=== PATIENT | male | born 1995 | race Two or more races ===

== ENCOUNTER 2020-06-17 06:13 | Emergency (ER) | payer MEDICAID, OTHER ==
[~2020-06-17] VITALS: Ht 157.5 cm; Wt 54.4 kg
--- NOTE | 2020-06-17 07:00 | NUR ---
BIBRA 60 FOR HEARING VOICES AND WILLING TO HURT HIMSELF. 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
[2020-06-17 07:08] LABS: BASOPHILS # (AUTO) 0.1 /CMM (0.0-0.2); BASOPHILS % (AUTO) 0.7 % (0.0-2.0); EOSINOPHILS % (AUTO) 0.2 % (0.0-6.0); HEMATOCRIT 43 % (39-51); HEMOGLOBIN 14.8 g/dL (13.5-17.5); LYMPHOCYTES # (AUTO) 2.4 /CMM (0.8-4.8); LYMPHOCYTES % (AUTO) 22.9 % (20.0-44.0); MEAN CORPUSCULAR HGB CONC 35 g/dl (31.0-36.0); MEAN CORPUSCULAR VOLUME 87 fL (80-96); MONOCYTES % (AUTO) 9.9 % (2.0-12.0); NEUTROPHILS # (AUTO) 6.8 /CMM (1.8-8.9); NEUTROPHILS % (AUTO) 66.3 % (43.0-81.0); PLATELET COUNT (AUTO) 341 /CMM (150-450); RED BLOOD CELL COUNT(AUTO) 4.92 MIL/uL (4.5-6.0); WHITE BLOOD COUNT (AUTO) 10.3 K/uL (4.3-11.0)
--- NOTE | 2020-06-17 07:20 | NUR ---
COVID SWAB DONE
[2020-06-17 07:37] LABS: CALCIUM, SERUM 8.9 mg/dL (8.5-10.1); CARBON DIOXIDE 23 mmol/L (21-32); CHLORIDE 99 mmol/L (98-107); CREATININE 0.7 mg/dL (0.6-1.3); GLUCOSE 96 mg/dL (74-106); POTASSIUM 3.3 mmol/L (3.5-5.1); SODIUM SERUM 136 mmol/L (136-145); UREA NITROGEN, BLOOD 17 mg/dL (7-18)
[2020-06-17 07:41] LABS: ALANINE AMINOTRANSFERASE 61 U/L (12-78); ALBUMIN 4.2 g/dL (3.4-5.0); ALCOHOL, BLOOD < 3 mg/dL (0-0); ALKALINE PHOSPHATASE 106 U/L (46-116); ASPARTATE AMINOTRANSFERASE 51 U/L (15-37); BILIRUBIN,DIRECT 0.3 mg/dL (0.0-0.2); BILIRUBIN,TOTAL 1.4 mg/dL (0.2-1.0); TOTAL PROTEIN, SERUM 7.5 g/dL (6.4-8.2)
[2020-06-17 07:45] LABS: ACETAMINOPHEN 0 ug/ml (10-30)
[2020-06-17 09:07] LABS: BILIRUBIN,URINE SMALL (NEGATIVE); LEUKOCYTE ESTERASE ,URINE NEGATIVE (NEGATIVE); NITRITE, URINE NEGATIVE (NEGATIVE); PROTEIN,URINE NEGATIVE (NEGATIVE); UGLUCOSE NEGATIVE (NEGATIVE)
[2020-06-17 09:20] LABS: COLOR,URINE DARK YELLOW (YELLOW)
[2020-06-17 10:04] LABS: BACTERIA,URINE None seen /HPF (None Seen); RBC,URINE NONE SEEN /HPF (0-2); SQUAMOUS EPITHELIAL CELL,UR None Seen /HPF (None Seen); WBC,URINE 0-2 /HPF (0-3)
--- NOTE | 2020-06-17 10:20 | NUR ---
SS Note: SS consult requested for SI+ and drug use. The pt. is a 24 year old male who was BIBRA for AH+ and possible SI+. Per EMR, the pt. tested positive for Amphetamine, Opiates, Cannabinoids. Upons SS consult, the pt. is lying in bed asleep. Pt is not rousable via verbal cues. Pt. appears disheveled, with flushed skin. SW will follow up at a later time. SW placed addiction resources in pt.'s discharge packet.
--- NOTE | 2020-06-17 11:30 | NUR ---
PATIENT RESTING IN BED, NO DISTRESS NOTED.
--- NOTE | 2020-06-17 16:11 | NUR ---
PATIENT SEEN AND EVALUATED BY [place] ELECTION CLERK, PATIENT WILL BE REFERRED AT [facility].
--- NOTE | 2020-06-17 16:14 | NUR ---
"SS Consult: JACQUELIN followed up with pt. bedside. The pt. is still very drowsy and barely rousable to verbal cues. The pt. appears disheveled. The pt. is alert & oriented X 2. Pt. stated he is still having suicidal ideations and could not state a plan. SW offered pt. voluntary placement in psychiatric hospital for treatment and pt. is agreeable. SW explored pt.s living conditions. Pt. stated that he has been experiencing homelessness since the age of 15. Pt. stated he live son the streets. SW provided pt. with homeless resources and pt. accepted them. Pt. is drowsy and was non-compliant with the rest of the interview. Plan: JACQUELIN faxed clinicals to to [facility] [[address] [place] [address] Fxa: [phone]] for inpatient psychiatric treatment. Pt. refused to sign homeless waiver. SW provided pt. with homeless resources and pt. accepted them. JACQUELIN provided pt. with the following resources: Substance Abuse resources provided included: [facility] Substance Abuse Self-Helpline ([facility]) ; CRI -HELP [address]39 [facility]. [place] [address] ; [facility] 35252 [facility] [address] ; [facility] 26989 [facility] [address] ; [facility] [address] [facility] [address] ; [facility] 5565 [facility] [address] ; [facility] [address] [facility] [address] ; [facility] Substance Abuse Helpline([facility] ; [facility] ; [facility] [place]; [facility] [place]; Cri[facility]Help [place]; I-ADARP Inter Agency Drug Abuse Recovery Melvin Spaulding; [facility] [place]; [facility] [place]; [facility] Tar[facility]; [facility], [facility]. [facility]; Alcoholics Anonymous -SFV; Lo-Dfuo-Yrldhjw ; Marijuana Anonymous -SFV; Narcotics Anonymous www.na.org; Year-round shelters: [facility] [place] [address] [place], [place] [phone] ; [facility] [place] [address] [place] [address]; [place] [facility] Fmxyfak6879 [facility] [address] Winter Shelters: [facility] Provider: Torres of [facility] Address: [address] [facility] Center[facility]andy [place], [address] # of Beds: 47 Population Served: [facility] 6 | [facility] Provider: Home at Last Address: [address], [address] # of Beds: 66 Population Served: [facility] Nanwalek Harrells Provider: First to Serve Address: [address]28 [facility], [address] # of Beds: 56 Population Served: [facility] Juan M ArevaloMandy [place] Provider: SSG/Ms. [facility] House Address: [address] [facility], [address] # of Beds: 49 Population Served: [facility] 8 | [facility] Provider: First to Serve Address: 3535 [facility], [address] # of Beds: 37 Population Served: [facility] Hygiene: [facility] Hospital[facility]: [address] Chris Torresge ; [place] [facility] [address] [facility] ; [facility] [address] Emeli Universal Laney . Food Resources: [place] [facility] at [facility]- [address]. [place]; Meet Each Need with Dignity ([facility]) [address] [facility]; [facility] Food Pantry 4317 [facility]; [facility] 0477 [facility]. Mental Health resources provided: [facility] [address] [place], [place] [phone] ; [facility] Mental Health [employer] [address] [facility] [address] 2, [place], [place] [phone] ; [facility] [address]2522 [facility] [place] [address] ; [facility] [place], [place] [phone] Healthcare Clinics: [facility] 6551 [facility], [address] [place]. [place] ; [facility] [address] [facility] [address] [place] [address]; [facility] Health [place] [address] [facility] [address] 946) [phone] Counseling--Outpatient [facility] [address] [facility], [place] [address] (Specializes in in-depth psychotherapy for emotional distress: anxiety, depression, interpersonal conflicts, life transitions, childhood abuse) [facility] [address] [place] [address] (Assist with solving problem marital difficulties, separation & divorce, aging parents, & grief, chronic & terminal illness) [facility] [address] [place] [address] (Deal with loss & grief, anxiety, marital difficulties) Homebound/Mental Health Services 60374 [facility] 100 [place] [address] (Provide in-home mental services to people who are incapable of leaving their homes) Organization for Needs of the Elderly Senior Service/Resource Center [address] [place] [place] [address] [facility] 6514 [address]ainz. Universal [place], [place] [phone] PSYCHIATRIC OUTPATIENT SERVICES [facility] Partial Hospitalization and Intensive Outpatient Program (Managed Care and [place] Only)[address]606 Bladimir [facility] [phone] [facility] Partial Hospitalization and Outpatient Gymoejz[address] [place], [place] [phone] [facility] Partial Hospitalization and Outpatient Fvuszzq9736 Universal Chelly jena. [place], [place] [phone] Counts include 234 beds at the [facility] Center [id number] [address] Flanagan. [address] [place], [place] [phone] [facility] Partial Hospitalization and Outpatient Jkctepv64849 [facility] Melvin SpauldingROSAMOND, [phone] "
--- NOTE | 2020-06-17 16:15 | NUR ---
JACQUELIN faxed clinicals to to [facility] [[facility] [place], [place] [id number] Fxa: [phone]] for inpatient psychiatric treatment.
--- NOTE | 2020-06-17 16:27 | NUR ---
PT ACCEPTED TO [facility] UNDER DR. DAY CALL [phone] TO UNIT 1
--- NOTE | 2020-06-17 16:31 | NUR ---
CALLED TRANSPORT TO [facility] WITH [facility] ETA 45 MINS PER ISAIAS.
[2020-06-17 17:44] VITALS: BP 112/71
--- NOTE | 2020-06-17 17:45 | NUR ---
REPORT GIVEN TO AMIE LEAL OF [facility] FOR MINESH.
--- NOTE | 2020-06-17 18:03 | NUR ---
PATIENT TRANSFERRED TO [facility]. IN STABLE CONDITION. NEEDS ATTENDED.
== END 2020-06-17 18:05 ==
LOC: ER 06:15
DX: F15.151 Other stimulant abuse with stimulant-induced psychotic disorder with hallucinations (principal); F11.10 Opioid abuse, uncomplicated; R45.851 Suicidal ideations; Z20.822 Contact with and (suspected) exposure to COVID-19; E80.6 Other disorders of bilirubin metabolism; E87.6 Hypokalemia; Z59.0 Homelessness
CPT/HCPCS: 36415; 80048; 80076; 80299; 80307; 80320; 81001; 85025; 87426; 99285; C9803; G0480

== ENCOUNTER 2021-02-10 21:31 | Emergency (ER) | payer MEDICAID ==
[~2021-02-10] VITALS: Ht 162.6 cm; Wt 54.4 kg
--- NOTE | 2021-02-10 21:40 | NUR ---
BIBRA86. SUICIDAL IDEATION VOLUNTARY ADMISSION. PATIENT ALERT AND ORIENTED X3. AMBULATORY WITH NON LABORED BREATHING. BELONGINGS COLLECTED AND PLACED IN BED 14 ON A MONITOR AND POX. SITTER AT BEDSIDE
--- NOTE | 2021-02-10 21:51 | NUR ---
URINE COLLECTED AND SENT TO LAB
[2021-02-10 22:34] LABS: HEMOGLOBIN 14.6 g/dL (13.5-17.5)
[2021-02-10 22:41] LABS: BASOPHILS % (AUTO) 0.3 % (0.0-2.0); EOSINOPHILS % (AUTO) 0.1 % (0.0-6.0); HEMATOCRIT 42 % (39-51); LYMPHOCYTES # (AUTO) 1.9 K/uL (0.8-4.8); LYMPHOCYTES % (AUTO) 19.8 % (20.0-44.0); MEAN CORPUSCULAR HGB CONC 34 g/dl (31.0-36.0); MEAN CORPUSCULAR VOLUME 83 fL (80-96); MONOCYTES # (AUTO) 0.7 K/uL (0.1-1.30); MONOCYTES % (AUTO) 6.9 % (2.0-12.0); NEUTROPHILS # (AUTO) 7.1 K/uL (1.8-8.9); NEUTROPHILS % (AUTO) 72.9 % (43.0-81.0); PLATELET COUNT (AUTO) 373 K/uL (150-450); RED BLOOD CELL COUNT(AUTO) 5.08 MIL/uL (4.5-6.0); WHITE BLOOD COUNT (AUTO) 9.7 K/uL (4.3-11.0)
[2021-02-10 22:59] LABS: BILIRUBIN,URINE Negative (NEGATIVE); COLOR,URINE YELLOW (YELLOW); LEUKOCYTE ESTERASE ,URINE Negative (NEGATIVE); NITRITE, URINE Negative (NEGATIVE); PH,URINE 6.5 (5.0-8.0); PROTEIN,URINE Negative (NEGATIVE); UGLUCOSE 100 MG/DL mg/dL (NEGATIVE); UROBILINOGEN,URINE 0.2 EU/dL (0.2)
[2021-02-10] MEDS ORDERED: diphenhydrAMINE HCL 50 MG CAPSULE PO ONE (23:00)
[2021-02-10] MEDS ORDERED: BUPRENORPHINE HCL 8 MG TAB.SUBL SL ONE ×2 (23:00→23:01)
[2021-02-10] MEDS ORDERED: diphenhydrAMINE HCL 50 MG CAPSULE ONE (23:01)
[2021-02-10 23:03] LABS: ALANINE AMINOTRANSFERASE 28 U/L (12-78); ALBUMIN 3.9 g/dL (3.4-5.0); ALKALINE PHOSPHATASE 146 U/L (46-116); ASPARTATE AMINOTRANSFERASE 39 U/L (15-37); BILIRUBIN,DIRECT 0.1 mg/dL (0.0-0.2); BILIRUBIN,TOTAL 0.3 mg/dL (0.2-1.0); CALCIUM, SERUM 8.5 mg/dL (8.5-10.1); CARBON DIOXIDE 31 mmol/L (21-32); CHLORIDE 101 mmol/L (98-107); CREATININE 0.8 mg/dL (0.6-1.3); POTASSIUM 3.3 mmol/L (3.5-5.1); SODIUM SERUM 141 mmol/L (136-145); TOTAL PROTEIN, SERUM 7.9 g/dL (6.4-8.2); UREA NITROGEN, BLOOD 13 mg/dL (7-18)
[2021-02-10 23:04] LABS: ACETAMINOPHEN < 2 ug/ml (10-30); ALCOHOL, BLOOD < 3 mg/dL (0-0); GLUCOSE 41 mg/dL (74-106)
--- NOTE | 2021-02-10 23:14 | NUR ---
REC'D CRITICAL LOW GLUCOSE LEVEL OF 41. FSBS: 120. DR SEWELL W/ ANEW ORDER TO REPEAT BMP. NOTED. LAB MADE AWARE
--- NOTE | 2021-02-10 23:22 | NUR ---
BLENDING KETTLE TENDER @ BEDSIDE
[2021-02-10 23:36] LABS: CALCIUM, SERUM 8.2 mg/dL (8.5-10.1); CREATININE 0.7 mg/dL (0.6-1.3); POTASSIUM 2.9 mmol/L (3.5-5.1)
[2021-02-11] MEDS ORDERED: POTASSIUM CHLORIDE 20 MEQ TAB.PRT.SR PO ONE ×2 (00:30→00:37)
--- NOTE | 2021-02-11 00:55 | NUR ---
PT WAS PROVIDED W/ SNACKS AND ORANGE JUICE. PO INTAKE TOLERATED WELL.
[2021-02-11] MEDS ORDERED: LORAZEPAM 1 MG TABLET PO ONE (03:00)
[2021-02-11] MEDS ORDERED: LORAZEPAM 1 MG TABLET ONE (03:04)
--- NOTE | 2021-02-11 05:56 | NUR ---
FAXED XLINICALS AND FACE SHEET TO [facility]
--- NOTE | 2021-02-11 10:32 | NUR ---
SW fax clinical reports to [facility] [fax:[phone]]. Will await response from [facility].
--- NOTE | 2021-02-11 10:44 | NUR ---
"SS Consult: SS consult for drug abuse/homelessness. Pt. Is a 25-year-old male. Pt. demonstrates adequate insight to the reason for hospitalization. Per pt., he was brought to hospital by ambulance. Pt. was oriented x2 and alert. During interview, pt. did not made appropriate eye-contact and appeared unkempt. As evidenced by: messy hair, dirty nails. Pt.'s speech was at a low rate. Pt.'s mood was irritable. JACQUELIN explored pt.'s Hx of mental health and substance abuse. Pt. reported no Hx of mental health, or homicidal. Pt. denies auditory hallucinations, visual hallucinations, paranoia, or delusions. Pt. reported having Hx of substance use [methamphetamine and marijuana]. SW explored pt.'s living situation. Per pt., he is homeless. Per pt., he reports having adequate support. Pt. expressed that he wants to go to [facility]. JACQUELIN fax clinical reports to [facility] [fax: [phone]]. Plan: JACQUELIN provided available resources and pt. denied. JACQUELIN left resources at bedside. Will await response from [facility]. Resources Provided: Winter Shelters: SPA 2 | [facility] Hospital[facility]: [facility] Address: Confidential (call for location ) Population Served: Coed # of Beds: 57 SPA 4 | [facility] Provider: Home at Last Address: [address] [place] [address] # of Beds: 49 Population Served: Coed SPA 6 | [facility] Provider: Home at Last Address: [address] [place] [address] # of Beds: 49 Population Served: Veronica [facility] Provider: Demar Benavides NVFernandez Address: 7664 [facility] [address] # of Beds: 20 Population Served: Women [facility] Facility Provider: Home at Last Address: [address] [place] [address] # of Beds: 30 Population Served: Women SPA 8 | [facility] Provider: [facility] [place] Address: [address] [facility] [address] # of Beds: 65 Population Served: Bered Year-round shelters: [place] [address] [place] [place] [address] ; [facility] [place] [address] [place] [address]; [place] [facility] U[address]eqj[address] [facility] [address] Winter Shelters: Pee Mays [place] Provider: [facility] [place] Address: [address] NMandy DiggseMandy Ramírez, [address] # of Beds: 47 Population Served: [place] SPA 6 | [facility] Belen Nelson [place] Provider: Home at Last Address: [address] [place] [address], [address] # of Beds: 66 Population Served: Veronica Kaylynn [place] Provider: First to Serve Address: [address]674 [facility], [address] # of Beds: 56 Population Served: Bered Juan M [place] Provider: SSG/Ms. [facility] Address: 8908 [facility], [address] # of Beds: 49 Population Served: [facility] SPA 8 | [facility] Provider: First to Serve Address: 3535 [facility], [address] # of Beds: 37 Population Served: Veronica Hygiene: [place] [facility]: [address] [place] ; [place] [facility] [address] [place] ; [facility] 8279 [place] Melvin Sainz . Food Resources: [place] Food Pantry at [facility]- [address] [place]; Meet Each Need with Dignity ([facility]) [address] Abdulaz[address] Wan RdMandy Paccleveland clinic [facility]; [facility] Food Pantry 4390 [place] [facility]; [facility] [address] [place]. Mental Health resources provided: [facility] [address] [place], [place] [address] ; [facility] Health [facility], Inc. [address] [address] [facility] UN[address], [place], [place] [phone] ; [facility] Urgent Care Center [address] [place] D[address] Adames [place], [place] [phone] ; [facility] [address] [place], [place] [phone] Healthcare Clinics: [facility] 6551 [facility], [address] [place]. [place] ; [facility] 6801 [facility] [address] [place] [address]; [facility] [address]70 [facility] [place] [address] [phone]) [phone] Counseling--Outpatient [facility] [address] [facility], [place] [address] (Specializes in in-depth psychotherapy for emotional distress: anxiety, depression, interpersonal conflicts, life transitions, childhood abuse) [facility] [address] [place] [address] (Assist with solving problem marital difficulties, separation & divorce, aging parents, & grief, chronic & terminal illness) [facility] [address] [place] [address] (Deal with loss & grief, anxiety, marital difficulties) Homebound/Mental Health Services [address] Brayden [facility], [address] [place], [place] [phone] (Provide in-home mental services to people who are incapable of leaving their homes) Organization for Needs of the Elderly Senior Service/Resource Center [address]anagan. [place], [place] [phone] [facility] 6514 [facility] [place] [address] PSYCHIATRIC OUTPATIENT SERVICES [facility] Partial Hospitalization and Intensive Outpatient Program (Managed Care and [place] Only)[address] [facility] [phone] [facility] Partial Hospitalization and Outpatient Lrvprug[address] [place], [place] [phone] MELVIN JERI [facility] Mental Health [place] Tto[address] Jerold Phelps Community Hospitalvd. [address] [place], [place] [phone] [facility] Partial Hospitalization and Outpatient Svyqqua70941 Emeliporfirio [facility] Melvin Spaulding, [phone] Substance Abuse resources provided included: [facility] Substance Abuse Self-Helpline ([facility]) ; CRI -HELP [address]19 [facility]. [place] [address] ; [facility] [address] [facility] [address] ; [facility] Rehabilitation Program [address] [facility] [phone] ; [facility] 400 [facility] [address] ; [facility] Centers 4940 [facility] [address] ; [facility] 909 [facility] [phone] ; [facility] Substance Abuse Helpline([facility])-[facility] ; [facility] ; [facility]; [facility]ann [facility] [place]; Cri-Help [place]; I-ADARP Inter [facility] Melvin Davisonjeri; [facility]; [facility]; [facility] Wilber; [facility], [facility]. Jhon Mason; Alcoholics Anonymous -SFV; [place] ; Marijuana Anonymous -SFV; Narcotics Anonymous www.na.org;"
--- NOTE | 2021-02-11 11:44 | NUR ---
PT ACCEPTED TO COUNT INCLUDES THE [facility] UNDER DR. CURIEL PLEASE CALL [phone] FOR REPORT PER JUNIOR
--- NOTE | 2021-02-11 11:46 | NUR ---
[facility] CALL[facility] ETA 1230 PER COREY.
[2021-02-11 11:56] VITALS: BP 112/82
--- NOTE | 2021-02-11 12:45 | NUR ---
PICKED UP BY [facility] AND WILL BE TRANSFERRED TO [facility] IN STABLE CONDITION. ALL BELONGINGS GIVEN BACK TO THE PATIENT.
--- NOTE | 2021-02-11 12:51 | NUR ---
REPORT GIVEN TO TANeeru OF SCAkashN
== END 2021-02-11 12:46 ==
LOC: ER 21:35
DX: R45.851 Suicidal ideations (principal); F11.13 Opioid abuse with withdrawal; F15.10 Other stimulant abuse, uncomplicated; Z59.02 Unsheltered homelessness; E87.6 Hypokalemia; Z82.49 Family history of ischemic heart disease and other diseases of the circulatory system; F12.10 Cannabis abuse, uncomplicated; Z20.822 Contact with and (suspected) exposure to COVID-19
CPT/HCPCS: 36415; 80048 ×2; 80076; 80143; 80307; 80320; 81003; 82962 ×2; 85025; 87426; 99285; C9803; Q0163; G0480

== ENCOUNTER 2021-03-07 01:59 | Emergency (ER) | payer MEDICAID ==
[~2021-03-07] VITALS: Ht 162.6 cm; Wt 64.9 kg
--- NOTE | 2021-03-07 02:23 | NUR ---
PT BERNY [address] C/O TOOK FENTANYL AND "SPEED" PLACED IN BED 13 ON MONITOR AND PULSE OX. AWAITING ER MD FOR EVAL AND ORDERS.
[2021-03-07 03:10] LABS: BASOPHILS % (AUTO) 0.8 % (0.0-2.0); EOSINOPHILS % (AUTO) 0.3 % (0.0-6.0); HEMATOCRIT 45 % (39-51); HEMOGLOBIN 15.7 g/dL (13.5-17.5); LYMPHOCYTES # (AUTO) 1.3 K/uL (0.8-4.8); LYMPHOCYTES % (AUTO) 24.4 % (20.0-44.0); MEAN CORPUSCULAR HGB CONC 35 g/dl (31.0-36.0); MEAN CORPUSCULAR VOLUME 86 fL (80-96); MONOCYTES # (AUTO) 0.5 K/uL (0.1-1.30); MONOCYTES % (AUTO) 9.3 % (2.0-12.0); NEUTROPHILS # (AUTO) 3.5 K/uL (1.8-8.9); NEUTROPHILS % (AUTO) 65.2 % (43.0-81.0); PLATELET COUNT (AUTO) 272 K/uL (150-450); RED BLOOD CELL COUNT(AUTO) 5.22 MIL/uL (4.5-6.0); WHITE BLOOD COUNT (AUTO) 5.4 K/uL (4.3-11.0)
[2021-03-07 03:36] LABS: CALCIUM, SERUM 8.7 mg/dL (8.5-10.1); CARBON DIOXIDE 26 mmol/L (21-32); CHLORIDE 98 mmol/L (98-107); CREATININE 0.9 mg/dL (0.6-1.3); GLUCOSE 69 mg/dL (74-106); POTASSIUM 3.4 mmol/L (3.5-5.1); SODIUM SERUM 137 mmol/L (136-145); UREA NITROGEN, BLOOD 20 mg/dL (7-18)
[2021-03-07 03:48] LABS: ALANINE AMINOTRANSFERASE 43 U/L (12-78); ALBUMIN 4.7 g/dL (3.4-5.0); ALKALINE PHOSPHATASE 102 U/L (46-116); ASPARTATE AMINOTRANSFERASE 55 U/L (15-37); BILIRUBIN,DIRECT 0.4 mg/dL (0.0-0.2); BILIRUBIN,TOTAL 1.6 mg/dL (0.2-1.0); TOTAL PROTEIN, SERUM 8.8 g/dL (6.4-8.2)
[2021-03-07 03:49] LABS: ACETAMINOPHEN 0 ug/ml (10-30); ALCOHOL, BLOOD < 3 mg/dL (0-0)
[2021-03-07] MEDS ORDERED: HALOPERIDOL LACTATE INJ 5 MG/ML VIAL ONE (03:56)
[2021-03-07] MEDS ORDERED: LORAZEPAM INJ 2 MG/ML VIAL ONE (03:57)
[2021-03-07] MEDS ORDERED: LORAZEPAM INJ 2 MG/ML VIAL IM ONE (04:00)
[2021-03-07] MEDS ORDERED: HALOPERIDOL LACTATE INJ 5 MG/ML VIAL IM ONE (04:00)
[2021-03-07] MEDS ORDERED: LIDOCAINE 2% JEL UROJET 10 ML MM ONE (04:52)
[2021-03-07] MEDS ORDERED: IV NS 0.9% 1,000 ML BAG IV ONE (05:00)
[2021-03-07 06:42] LABS: BILIRUBIN,URINE SMALL (NEGATIVE); COLOR,URINE YELLOW (YELLOW); LEUKOCYTE ESTERASE ,URINE NEGATIVE (NEGATIVE); NITRITE, URINE NEGATIVE (NEGATIVE); PROTEIN,URINE NEGATIVE (NEGATIVE); UGLUCOSE NEGATIVE (NEGATIVE)
[2021-03-07 07:14] LABS: BACTERIA,URINE None seen /HPF (None Seen); RBC,URINE NONE SEEN /HPF (0-2); SQUAMOUS EPITHELIAL CELL,UR Rare /HPF (None Seen)
[2021-03-07 07:15] LABS: MUCUS,URINE Few /LPF (None Seen)
--- NOTE | 2021-03-07 07:15 | NUR ---
ASSESSED PT ON BED ASLEEP, EASILY AROUSABLE, NOT IN RESPIRATORY DISTRESS, V/S STABLE, KEPT RESTED AND COMFORTABLE. WILL CONTINUE TO MONITOR.
[2021-03-07] MEDS ORDERED: NALO4SPR NS (08:11)
--- NOTE | 2021-03-07 09:14 | NUR ---
IV removed. Catheter intact and site benign. Pressure and 4x4 applied to site. No bleeding noted.
--- NOTE | 2021-03-07 09:14 | NUR ---
Patient given written and verbal discharge instructions. Patient verbalizes understanding of instructions. Patient is ambulatory with steady gait. Refuses offer of long-term placement. Patient given list of available shelters in surrounding area.
[2021-03-07 09:15] VITALS: BP 138/88
== END 2021-03-07 09:16 | disposition home or self-care (01) ==
LOC: ER 02:01
DX: F15.10 Other stimulant abuse, uncomplicated (principal); R45.1 Restlessness and agitation; F17.290 Nicotine dependence, other tobacco product, uncomplicated; Z59.00 Homelessness unspecified
CPT/HCPCS: 36415; 80048; 80076; 80143; 80307; 80320; 81001; 82550; 82553; 82962; 84484; 85025; 93005; 96360; 96361; 96372; 99291; J1630; J2060; J3490; J7030 ×2; G0480

== ENCOUNTER 2021-08-01 17:23 | Emergency (ER) | payer MEDICAID ==
[~2021-08-01] VITALS: Ht 160 cm; Wt 53.1 kg
[~2021-08-01 17:23] MED LIST: NALO4SPR NS
--- NOTE | 2021-08-01 17:29 | NUR ---
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
--- NOTE | 2021-08-01 17:30 | NUR ---
IV CANNULA G18 INSERTED ON LEFT AC . BLOOD DRAWN AND SENT TO LAB
--- NOTE | 2021-08-01 17:36 | NUR ---
SEEN AND EXAMINED BY .
[2021-08-01] MEDS ORDERED: ONDANSETRON HCL/PF 4 MG/2 ML VIAL ONE (17:41)
[2021-08-01] MEDS ORDERED: LORAZEPAM INJ 2 MG/ML VIAL ONE ×2 (17:42→22:49)
[2021-08-01] MEDS ORDERED: LORAZEPAM INJ 2 MG/ML VIAL IV ONE ×2 (18:00→22:00)
[2021-08-01] MEDS ORDERED: IV NS 0.9% 1,000 ML BAG IV ONE ×2 (18:00→22:00)
[2021-08-01] MEDS ORDERED: ONDANSETRON HCL/PF - ER 4 MG/2 ML VIAL IV ONE (18:00)
[2021-08-01 18:18] LABS: BASOPHILS % (AUTO) 0.3 % (0.0-2.0); EOSINOPHILS % (AUTO) 0.3 % (0.0-6.0); HEMATOCRIT 44 % (39-51); LYMPHOCYTES # (AUTO) 1.7 K/uL (0.8-4.8); LYMPHOCYTES % (AUTO) 36.9 % (20.0-44.0); MEAN CORPUSCULAR HGB CONC 34 g/dl (31.0-36.0); MEAN CORPUSCULAR VOLUME 86 fL (80-96); MONOCYTES # (AUTO) 0.3 K/uL (0.1-1.30); MONOCYTES % (AUTO) 6.5 % (2.0-12.0); NEUTROPHILS # (AUTO) 2.6 K/uL (1.8-8.9); PLATELET COUNT (AUTO) 316 K/uL (150-450); RED BLOOD CELL COUNT(AUTO) 5.05 MIL/uL (4.5-6.0); WHITE BLOOD COUNT (AUTO) 4.7 K/uL (4.3-11.0)
--- NOTE | 2021-08-01 18:26 | NUR ---
URINE COLLECTED AND SENT TO LAB
[2021-08-01 18:39] LABS: ALANINE AMINOTRANSFERASE 54 U/L (12-78); ALBUMIN 3.8 g/dL (3.4-5.0); ALKALINE PHOSPHATASE 127 U/L (46-116); ASPARTATE AMINOTRANSFERASE 84 U/L (15-37); BILIRUBIN,DIRECT 0.1 mg/dL (0.0-0.2); BILIRUBIN,TOTAL 0.5 mg/dL (0.2-1.0); CALCIUM, SERUM 8.6 mg/dL (8.5-10.1); CARBON DIOXIDE 30 mmol/L (21-32); CHLORIDE 103 mmol/L (98-107); CREATININE 0.9 mg/dL (0.6-1.3); GLUCOSE 56 mg/dL (74-106); SODIUM SERUM 141 mmol/L (136-145); TOTAL PROTEIN, SERUM 7.2 g/dL (6.4-8.2); UREA NITROGEN, BLOOD 10 mg/dL (7-18)
[2021-08-01 19:04] LABS: ACETAMINOPHEN 0 ug/ml (10-30); ALCOHOL, BLOOD < 3 mg/dL (0-0)
[2021-08-01] MEDS ORDERED: POTASSIUM CL. PREMIX PERIPHER. 50 ML ONE ×3 (19:54→23:35)
[2021-08-01 19:56] LABS: BILIRUBIN,URINE NEGATIVE (NEGATIVE); COLOR,URINE YELLOW (YELLOW); LEUKOCYTE ESTERASE ,URINE NEGATIVE (NEGATIVE); NITRITE, URINE NEGATIVE (NEGATIVE); PROTEIN,URINE 30 mg/dl (NEGATIVE); UGLUCOSE NEGATIVE (NEGATIVE)
[2021-08-01] MEDS: POTASSIUM CL. PREMIX PERIPHER. 50 ML IV SCH ×4 (20:04→23:04)
--- NOTE | 2021-08-01 20:15 | NUR ---
PATIENT MOVED FROM BED 15 TO BED 12.
[2021-08-01 20:25] LABS: BACTERIA,URINE RARE /HPF (None Seen); MUCUS,URINE Moderate /LPF (None Seen); RBC,URINE 0-2 /HPF (0-2); SQUAMOUS EPITHELIAL CELL,UR 0-2 /HPF (None Seen); URINE AMORPHOUS URATE Few /HPF (None Seen); WBC,URINE 0-2 /HPF (0-3)
--- NOTE | 2021-08-01 21:45 | NUR ---
2ND BAG OF KCL 10meq/50ml started.
[2021-08-01] MEDS ORDERED: NALO4SPR BNOSTRILS (23:24)
--- NOTE | 2021-08-01 23:37 | NUR ---
3RD BAG OF KCL 10meq/50ml started.
[2021-08-02] MEDS ORDERED: POTASSIUM CL. PREMIX PERIPHER. 50 ML ONE (00:03)
--- NOTE | 2021-08-02 02:30 | NUR ---
pt is awake, alert and oriented. pt deneis being suicidal. pt was provided with water and tolerated without any problem.
--- NOTE | 2021-08-02 02:47 | NUR ---
pt provided with clothing d/t patient came in naked.
--- NOTE | 2021-08-02 02:55 | NUR ---
IV removed. Catheter intact and site benign. Pressure and 4x4 applied to site. No bleeding noted.
--- NOTE | 2021-08-02 02:56 | NUR ---
Patient given written and verbal discharge instructions. Patient verbalizes understanding of instructions. Patient is ambulatory with steady gait. Refuses offer of [facility] placement. Patient given list of available shelters in surrounding area.
[2021-08-02 02:58] VITALS: BP 112/75
== END 2021-08-02 03:00 | disposition home or self-care (01) ==
LOC: ER 17:40
DX: F19.10 Other psychoactive substance abuse, uncomplicated (principal); F17.200 Nicotine dependence, unspecified, uncomplicated; Z59.00 Homelessness unspecified; Z79.899 Other long term (current) drug therapy
CPT/HCPCS: 36415; 80048; 80076; 80143; 80307; 80320; 81001; 82550; 85025; 93005; 96361; 96365; 96375; 96376; 99284; J2060 ×2; J2405; J3480 ×4; J7030 ×2; J7050; G0480